=== PATIENT | female | born 1950 | race Caucasian/White ===

== ENCOUNTER → 2023-08-05 08:29 | Outpatient (REF) | payer MEDICARE, SELFPAY | LOC: RAD 08:29 | PROVIDERS: ATTENDING PHYSICIAN Internal Medicine Cardiovascular Disease; FAMILY PHYSICIAN Family Medicine | DX: I65.23 Occlusion and stenosis of bilateral carotid arteries (principal) | CPT/HCPCS: 93880 ==

== ENCOUNTER → 2024-03-12 14:16 | Outpatient (REF) | payer MEDICARE, SELFPAY | LOC: WDC 14:16 | PROVIDERS: ATTENDING PHYSICIAN Family Medicine | DX: Z12.31 Encounter for screening mammogram for malignant neoplasm of breast (principal) | CPT/HCPCS: 77063; 77067 ==

== ENCOUNTER → 2024-07-30 09:03 | Outpatient (REF) | payer MEDICARE, SELFPAY | LOC: RCS 09:03 | PROVIDERS: ATTENDING PHYSICIAN Internal Medicine Cardiovascular Disease; FAMILY PHYSICIAN Family Medicine | DX: R00.2 Palpitations (principal); I35.8 Other nonrheumatic aortic valve disorders | CPT/HCPCS: 93306 ==